=== PATIENT | female | born 1970 | race Caucasian/White ===

== ENCOUNTER 2016-12-09 11:26 | Emergency (ER) | payer MEDICARE, OTHER ==
[~2016-12-09] VITALS: Ht 162.6 cm; Wt 100.0 kg
[~2016-12-09 11:26] MED LIST: CARV3 PO; FLUT1BLS PO; LITH300C3 PO; LOSA25TA21 PO; TIOT185 IH
[2016-12-09] MEDS ORDERED: LIDOCAINE HCL BUFFERED 1% 20 ML VIAL INJ ONE (11:45)
[2016-12-09] MEDS ORDERED: HYDROCODONE/ACETAMINOPHEN 5-325 MG TABLET PO ONE (11:45)
[2016-12-09 12:31] VITALS: BP 139/77
== END 2016-12-09 12:33 | disposition home or self-care (01) ==
LOC: EMS 11:29
DX: K04.7 Periapical abscess without sinus (principal); J45.909 Unspecified asthma, uncomplicated; I10 Essential (primary) hypertension; F41.9 Anxiety disorder, unspecified; F15.90 Other stimulant use, unspecified, uncomplicated; Z88.0 Allergy status to penicillin; Z88.1 Allergy status to other antibiotic agents; Z91.013 Allergy to seafood
CPT/HCPCS: 41800; 99284; J3490; 99283

== ENCOUNTER 2016-12-16 01:32 | Inpatient (IN) | payer MEDICARE, MEDICAID ==
[~2016-12-16] VITALS: Ht 165.1 cm; Wt 102.5 kg
[~2016-12-16 01:32] MED LIST changes: -LITH300C3 PO
[2016-12-16] MEDS ORDERED: ZOLPIDEM TARTRATE 10 MG TABLET PO PRN (02:30)
[2016-12-16] MEDS ORDERED: HALOPERIDOL 5 MG TABLET PO PRN (02:30)
[2016-12-16 05:45] VITALS: BP 125/82
[2016-12-16 08:03] VITALS: BP 130/74
[2016-12-16] MEDS: LORazepam 2 MG TABLET PO PRN ×3 (09:22→18:44)
[2016-12-16] MEDS ORDERED: PredniSONE 20 MG TABLET PO ONE (09:45)
[2016-12-16] MEDS ORDERED: DiphenhydrAMINE HCL 25 MG CAPSULE PO ONE (09:45)
[2016-12-16] MEDS ORDERED: FAMOTIDINE 20 MG TABLET PO ONE (09:45)
[2016-12-16] MEDS ORDERED: ACETAMINOPHEN 325 MG TABLET PO PRN ×2 (12:30→16:15)
[2016-12-16] MEDS ORDERED: TUBERCULIN, PURIFIED PROTEIN DERIVATIVE 5 TU/0.1 ML SYG ID ONE (12:30)
[2016-12-16] MEDS ORDERED: PROMETHAZINE HCL 25 MG TABLET PO PRN (12:30)
[2016-12-16] MEDS ORDERED: GuaiFENesin/D-METHORPHAN [SUGAR-FREE] 200-20MG/10 ML SYRUP UDCUP PO PRN (12:30)
[2016-12-16] MEDS ORDERED: MAG HYDROX/AL HYDROX/SIMETH ES 30 ML SUSPENSION UDCUP PO PRN (12:30)
[2016-12-16] MEDS ORDERED: MAGNESIUM HYDROXIDE SUSPENSION 30 ML UDCUP PO PRN (12:30)
[2016-12-16] MEDS ORDERED: HydrOXYzine PAMOATE 50 MG CAPSULE PO PRN (12:30)
[2016-12-16] MEDS ORDERED: LOPERAMIDE HCL 2 MG CAPSULE PO PRN (12:30)
[2016-12-16] MEDS ORDERED: ARIPiprazole ER SUSPENSION 400 MG PRE-FILLED DUAL CHAMBER SYRINGE IM ONE (15:30)
[2016-12-16 16:07] VITALS: BP 144/81
[2016-12-16] MEDS: THIAMINE HCL 100 MG TABLET PO SCH (16:07)
[2016-12-16] MEDS: DiphenhydrAMINE HCL 25 MG CAPSULE PO SCH ×2 (16:45→20:14)
[2016-12-16] MEDS: CARVEDILOL 3.125 MG TABLET PO SCH (16:45)
[2016-12-17 01:55] VITALS: BP 139/90
[2016-12-17] MEDS: IBUPROFEN 400 MG TABLET PO PRN ×2 (02:00→16:23)
[2016-12-17 09:01] VITALS: BP 134/78
[2016-12-17] MEDS: FOLIC ACID 1 MG TABLET PO SCH (09:17)
[2016-12-17] MEDS: DiphenhydrAMINE HCL 25 MG CAPSULE PO SCH ×4 (09:17→20:36)
[2016-12-17] MEDS: FLUTICASONE/VILANTEROL 200-25 MCG/INH INHALER [14] IH SCH (09:17)
[2016-12-17] MEDS: THIAMINE HCL 100 MG TABLET PO SCH ×2 (09:17→16:18)
[2016-12-17] MEDS: CARVEDILOL 3.125 MG TABLET PO SCH ×2 (09:17→16:18)
[2016-12-17] MEDS: TIOTROPIUM BROMIDE 18 MCG/INH HANDIHALER [5] IH SCH (09:17)
[2016-12-17] MEDS: FLUoxetine HCL 10 MG CAPSULE PO SCH (09:18)
[2016-12-17] MEDS: MULTIVITAMINS WITH MINERALS, THERAPEUTIC TABLET PO SCH (09:18)
[2016-12-17] MEDS: LOSARTAN POTASSIUM 25 MG TABLET PO SCH (09:18)
[2016-12-17 09:19] VITALS: BP 134/82
[2016-12-17] MEDS: LORazepam 2 MG TABLET PO PRN ×2 (09:21→17:05)
[2016-12-17 10:21] VITALS: BP 129/76
[2016-12-17 16:05] VITALS: BP 121/66
[2016-12-17 16:25] VITALS: BP 121/68
[2016-12-18 00:02] VITALS: BP 115/69
[2016-12-18 08:31] VITALS: BP 131/73
[2016-12-18] MEDS: CARVEDILOL 3.125 MG TABLET PO SCH (09:19)
[2016-12-18] MEDS: FLUTICASONE/VILANTEROL 200-25 MCG/INH INHALER [14] IH SCH (09:19)
[2016-12-18] MEDS: LOSARTAN POTASSIUM 25 MG TABLET PO SCH (09:19)
[2016-12-18] MEDS: FOLIC ACID 1 MG TABLET PO SCH (09:19)
[2016-12-18] MEDS: FLUoxetine HCL 10 MG CAPSULE PO SCH (09:19)
[2016-12-18] MEDS: TIOTROPIUM BROMIDE 18 MCG/INH HANDIHALER [5] IH SCH (09:19)
[2016-12-18] MEDS: MULTIVITAMINS WITH MINERALS, THERAPEUTIC TABLET PO SCH (09:19)
[2016-12-18] MEDS: THIAMINE HCL 100 MG TABLET PO SCH (09:19)
[2016-12-18] MEDS: LORazepam 2 MG TABLET PO PRN (09:20)
[2016-12-18] MEDS: DiphenhydrAMINE HCL 25 MG CAPSULE PO SCH ×2 (09:32→12:40)
[2016-12-18] MEDS ORDERED: PROZ10 PO (14:13)
[2016-12-18] MEDS ORDERED: ARIP400S3 IM (14:13)
[2016-12-18] MEDS ORDERED: ALBUTEROL SULFATE HFA 90 MCG/PUFF 8 GM INHALER IH PRN (14:15)
[2016-12-18 16:13] VITALS: BP 126/64
[2016-12-18] MEDS ORDERED: CARV3 PO (16:16)
[2016-12-18] MEDS ORDERED: TIOT185 IH (16:17)
[2016-12-18] MEDS ORDERED: FLUT1BLS PO (16:17)
[2016-12-18] MEDS ORDERED: LOSA25TA21 PO (16:18)
[2017-01-13] MEDS ORDERED: ARIPiprazole ER SUSPENSION 400 MG PRE-FILLED DUAL CHAMBER SYRINGE IM SCH (09:00)
== END 2016-12-18 17:25 | disposition home or self-care (01) | DRG 885 ==
LOC: EDSTATUS 02:39 → B3A 02:53
PROVIDERS: ADMIT Psychiatry & Neurology Psychiatry; ATTEND Psychiatry & Neurology Psychiatry
DX: F31.60 Bipolar disorder, current episode mixed, unspecified (principal); K86.1 Other chronic pancreatitis; F43.10 Post-traumatic stress disorder, unspecified; F41.9 Anxiety disorder, unspecified; I10 Essential (primary) hypertension; F17.210 Nicotine dependence, cigarettes, uncomplicated; M41.9 Scoliosis, unspecified; J45.909 Unspecified asthma, uncomplicated; E66.9 Obesity, unspecified; E55.9 Vitamin D deficiency, unspecified; M19.90 Unspecified osteoarthritis, unspecified site; Z98.890 Other specified postprocedural states; Z91.19 Patient's noncompliance with other medical treatment and regimen; Z88.0 Allergy status to penicillin; Z88.1 Allergy status to other antibiotic agents; Z88.2 Allergy status to sulfonamides; Z79.899 Other long term (current) drug therapy; Z68.37 Body mass index [BMI] 37.0-37.9, adult; Z91.5 Personal history of self-harm; Z87.442 Personal history of urinary calculi; Z91.410 Personal history of adult physical and sexual abuse; Z81.8 Family history of other mental and behavioral disorders; Z82.49 Family history of ischemic heart disease and other diseases of the circulatory system; Z82.5 Family history of asthma and other chronic lower respiratory diseases
CPT/HCPCS: J0401

== ENCOUNTER 2017-06-28 20:20 | Emergency (ER) | payer MEDICARE, MEDICAID ==
[~2017-06-28 20:20] MED LIST changes: +ARIP400S3 IM; +PROZ10 PO
== END 2017-06-28 21:54 | disposition left against medical advice (07) ==
LOC: EMS 20:23
DX: S00.81XA Abrasion of other part of head, initial encounter (principal); S10.91XA Abrasion of unspecified part of neck, initial encounter; J45.909 Unspecified asthma, uncomplicated; I10 Essential (primary) hypertension; F17.210 Nicotine dependence, cigarettes, uncomplicated; F19.90 Other psychoactive substance use, unspecified, uncomplicated; Y04.2XXA Assault by strike against or bumped into by another person, initial encounter; Y93.89 Activity, other specified; Y92.89 Other specified places as the place of occurrence of the external cause; Y99.8 Other external cause status

== ENCOUNTER 2017-12-29 14:22 | Inpatient (IN) | payer MEDICARE, MEDICAID ==
[~2017-12-29] VITALS: Ht 162.6 cm; Wt 113.9 kg
[2017-12-29] MEDS ORDERED: GuaiFENesin/D-METHORPHAN [SUGAR-FREE] 200-20MG/10 ML SYRUP UDCUP PO PRN (16:30)
[2017-12-29] MEDS ORDERED: PNEUMOCOCCAL VACCINE POLYVALENT 0.5 ML VIAL [PPSV23] IM ONE (16:30)
[2017-12-29] MEDS ORDERED: TUBERCULIN, PURIFIED PROTEIN DERIVATIVE 5 TU/0.1 ML SYG ID ONE (16:30)
[2017-12-29] MEDS ORDERED: PROMETHAZINE HCL 25 MG TABLET PO PRN (16:30)
[2017-12-29] MEDS ORDERED: ZOLPIDEM TARTRATE 10 MG TABLET PO PRN (16:30)
[2017-12-29] MEDS ORDERED: HydrOXYzine PAMOATE 50 MG CAPSULE PO PRN (16:30)
[2017-12-29] MEDS ORDERED: ACETAMINOPHEN 325 MG TABLET PO PRN (16:30)
[2017-12-29] MEDS ORDERED: ARIPiprazole 5 MG TABLET PO PRN (16:30)
[2017-12-29] MEDS ORDERED: MAGNESIUM HYDROXIDE SUSPENSION 30 ML UDCUP PO PRN (16:30)
[2017-12-29] MEDS ORDERED: MAG HYDROX/AL HYDROX/SIMETH ES 30 ML SUSPENSION UDCUP PO PRN (16:30)
[2017-12-29] MEDS ORDERED: INFLUENZA VIRUS VACCINE QVS 2017-18 (3YR+)/PF 60 MCG/0.5 ML SYRINGE IM ONE (16:30)
[2017-12-29] MEDS ORDERED: LOPERAMIDE HCL 2 MG CAPSULE PO PRN (16:30)
[2017-12-29] MEDS: THIAMINE HCL 100 MG TABLET PO SCH (17:13)
[2017-12-29 17:50] VITALS: BP 117/74
[2017-12-29] MEDS ORDERED: ARIPiprazole ER SUSPENSION 400 MG PRE-FILLED DUAL CHAMBER SYRINGE IM ONE (21:00)
[2017-12-30 06:10] VITALS: BP 128/84
[2017-12-30 08:29] VITALS: BP 118/74
[2017-12-30 08:38] LABS: BASOPHILS % (AUTO) 0.5 % (0.0-2.0); EOSINOPHILS % (AUTO) 2.2 % (1.0-6.0); HEMOGLOBIN 10.2 g/dL (12.0-16.0); LYMPHOCYTES # (AUTO) 1.5 K/uL (1.0-4.8); LYMPHOCYTES % (AUTO) 21.1 % (22.0-44.0); MEAN CORPUSCULAR HEMOGLOBIN 25.7 pg (26.0-34.0); MEAN CORPUSCULAR HGB CONC 32.8 G/dL (31.0-37.0); MEAN CORPUSCULAR VOLUME 78 fL (80-100); MONOCYTES # (AUTO) 0.5 K/uL (0.1-1.0); MONOCYTES % (AUTO) 6.9 % (2.0-9.0); NEUTROPHILS % (AUTO) 69.3 % (40.0-70.0); PLATELET COUNT (AUTO) 267 K/uL (150-450); RED BLOOD CELL COUNT(AUTO) 3.96 MIL/uL (4.00-5.20); RED CELL DISTRIBUTION WIDTH 16.9 % (11.5-14.5)
[2017-12-30] MEDS: FOLIC ACID 1 MG TABLET PO SCH (08:54)
[2017-12-30] MEDS: ARIPiprazole 15 MG TABLET PO SCH (08:54)
[2017-12-30] MEDS: MULTIVITAMINS WITH MINERALS, THERAPEUTIC TABLET PO SCH (08:54)
[2017-12-30] MEDS: THIAMINE HCL 100 MG TABLET PO SCH ×2 (08:54→16:35)
[2017-12-30 09:01] LABS: HEMOGLOBIN A1C 5.5 % (4.5-6.2)
[2017-12-30 09:06] LABS: ALANINE AMINOTRANSFERASE 49 U/L (12-78); ALBUMIN 3.2 g/dL (3.4-5.0); ALKALINE PHOSPHATASE 75 U/L (46-116); ANION GAP 7 mmol/L (8-16); ASPARTATE AMINOTRANSFERASE 71 U/L (15-37); BILIRUBIN,TOTAL 0.3 mg/dL (0.1-1.0); CALCIUM, TOTAL 8.3 mg/dL (8.8-10.5); CARBON DIOXIDE 30 mmol/L (22-29); CHLORIDE 105 mmol/L (98-107); CHOLESTEROL 104 mg/dL (131-200); CREATININE 0.55 mg/dL (0.60-1.30); FREE T4 (FREE THYROXINE) 0.95 ng/dL (0.76-1.46); GLOMERULAR FILTR. RATE CALC > 60 mL/min (>60); GLUCOSE,RANDOM 89 mg/dL (70-110); HCG,QUANTITATIVE < 1 mIU/mL (0-6); HDL CHOLESTEROL 35 mg/dL (40-60); LDL CHOL (CALC.) 55 mg/dL (0-130); POTASSIUM 3.8 mmol/L (3.5-5.1); SODIUM SERUM 142 mmol/L (136-145); THYROID STIMULATING HORMONE 0.88 uIU/mL (0.36-3.74); TOTAL PROTEIN, SERUM 6.3 g/dL (6.4-8.2); TRIGLYCERIDES 68 mg/dL (15-150); UREA NITROGEN, BLOOD 11 mg/dL (7-18)
[2017-12-30] MEDS: LORazepam 2 MG TABLET PO PRN ×2 (09:25→16:35)
[2017-12-30 10:59] LABS: PLATELET MORPHOLOGY COMMENT NORMAL
[2017-12-30] MEDS ORDERED: CloNIDine HCL 0.1 MG TABLET PO PRN (14:45)
[2017-12-30] MEDS ORDERED: ACETAMINOPHEN 325 MG TABLET PO PRN (14:45)
[2017-12-30] MEDS ORDERED: IBUPROFEN 400 MG TABLET PO PRN (14:45)
[2017-12-30 16:19] VITALS: BP 124/68
[2017-12-31 01:00] VITALS: BP 146/95
[2017-12-31 08:44] VITALS: BP 140/73
[2017-12-31 08:46] LABS: HEMOGLOBIN A1C 5.4 % (4.5-6.2)
[2017-12-31] MEDS: FLUoxetine HCL 10 MG CAPSULE PO SCH (09:04)
[2017-12-31] MEDS: FOLIC ACID 1 MG TABLET PO SCH (09:04)
[2017-12-31] MEDS: TIOTROPIUM BROMIDE 18 MCG/INH HANDIHALER [5] IH SCH (09:04)
[2017-12-31] MEDS: ARIPiprazole 15 MG TABLET PO SCH (09:04)
[2017-12-31] MEDS: FLUTICASONE/VILANTEROL 200-25 MCG/INH INHALER [14] IH SCH (09:04)
[2017-12-31] MEDS: MULTIVITAMINS WITH MINERALS, THERAPEUTIC TABLET PO SCH (09:05)
[2017-12-31] MEDS: THIAMINE HCL 100 MG TABLET PO SCH ×2 (09:05→16:04)
[2017-12-31 09:19] LABS: CHOL/HDL RATIO 3.1 (3.9-5.7); THYROID STIMULATING HORMONE 0.62 uIU/mL (0.36-3.74)
[2017-12-31] MEDS: LORazepam 2 MG TABLET PO PRN ×2 (10:51→16:54)
[2017-12-31 18:14] VITALS: BP 122/80
[2018-01-01 03:15] VITALS: BP 140/76
[2018-01-01 08:37] VITALS: BP 125/83
[2018-01-01] MEDS: ARIPiprazole 15 MG TABLET PO SCH (09:12)
[2018-01-01] MEDS: THIAMINE HCL 100 MG TABLET PO SCH ×2 (09:12→16:30)
[2018-01-01] MEDS: FOLIC ACID 1 MG TABLET PO SCH (09:12)
[2018-01-01] MEDS: MULTIVITAMINS WITH MINERALS, THERAPEUTIC TABLET PO SCH (09:12)
[2018-01-01] MEDS: FLUoxetine HCL 10 MG CAPSULE PO SCH (09:12)
[2018-01-01] MEDS: TIOTROPIUM BROMIDE 18 MCG/INH HANDIHALER [5] IH SCH (09:17)
[2018-01-01] MEDS: FLUTICASONE/VILANTEROL 200-25 MCG/INH INHALER [14] IH SCH (09:17)
[2018-01-01] MEDS: LORazepam 2 MG TABLET PO PRN (14:04)
[2018-01-01 16:28] VITALS: BP 124/79
[2018-01-02 01:05] VITALS: BP 125/77
[2018-01-02] MEDS: TIOTROPIUM BROMIDE 18 MCG/INH HANDIHALER [5] IH SCH (08:29)
[2018-01-02] MEDS: THIAMINE HCL 100 MG TABLET PO SCH ×2 (08:29→16:17)
[2018-01-02] MEDS: ARIPiprazole 10 MG TABLET PO SCH (08:29)
[2018-01-02] MEDS: FOLIC ACID 1 MG TABLET PO SCH (08:30)
[2018-01-02] MEDS: FLUoxetine HCL 10 MG CAPSULE PO SCH (08:30)
[2018-01-02] MEDS: FLUTICASONE/VILANTEROL 200-25 MCG/INH INHALER [14] IH SCH (08:30)
[2018-01-02] MEDS: MULTIVITAMINS WITH MINERALS, THERAPEUTIC TABLET PO SCH (08:30)
[2018-01-02 08:32] VITALS: BP 124/86
[2018-01-02] MEDS: LORazepam 2 MG TABLET PO PRN (10:15)
[2018-01-02 16:05] VITALS: BP 124/87
[2018-01-02] MEDS: FERROUS SULFATE 325 MG EC TABLET PO SCH (16:18)
[2018-01-03 01:28] VITALS: BP 113/61
[2018-01-03] MEDS: FERROUS SULFATE 325 MG EC TABLET PO SCH ×2 (06:45→16:12)
[2018-01-03 08:03] VITALS: BP 116/76
[2018-01-03] MEDS: FLUoxetine HCL 20 MG CAPSULE PO SCH (08:39)
[2018-01-03] MEDS: ARIPiprazole 10 MG TABLET PO SCH (08:39)
[2018-01-03] MEDS: MULTIVITAMINS WITH MINERALS, THERAPEUTIC TABLET PO SCH (08:39)
[2018-01-03] MEDS: FOLIC ACID 1 MG TABLET PO SCH (08:39)
[2018-01-03] MEDS: FLUTICASONE/VILANTEROL 200-25 MCG/INH INHALER [14] IH SCH (08:40)
[2018-01-03] MEDS: THIAMINE HCL 100 MG TABLET PO SCH ×2 (08:40→16:13)
[2018-01-03] MEDS: TIOTROPIUM BROMIDE 18 MCG/INH HANDIHALER [5] IH SCH (08:40)
[2018-01-03] MEDS: LORazepam 2 MG TABLET PO PRN (14:59)
[2018-01-03 16:19] VITALS: BP 123/82
[2018-01-04 06:25] VITALS: BP 123/90
[2018-01-04] MEDS: FERROUS SULFATE 325 MG EC TABLET PO SCH (06:50)
[2018-01-04 08:31] VITALS: BP 118/76
[2018-01-04] MEDS: LORazepam 2 MG TABLET PO PRN (08:37)
[2018-01-04] MEDS: ARIPiprazole 10 MG TABLET PO SCH (08:37)
[2018-01-04] MEDS: FLUoxetine HCL 20 MG CAPSULE PO SCH (08:37)
[2018-01-04] MEDS: FOLIC ACID 1 MG TABLET PO SCH (08:37)
[2018-01-04] MEDS: MULTIVITAMINS WITH MINERALS, THERAPEUTIC TABLET PO SCH (08:37)
[2018-01-04] MEDS: THIAMINE HCL 100 MG TABLET PO SCH (08:37)
[2018-01-04] MEDS: TIOTROPIUM BROMIDE 18 MCG/INH HANDIHALER [5] IH SCH (08:38)
[2018-01-04] MEDS: FLUTICASONE/VILANTEROL 200-25 MCG/INH INHALER [14] IH SCH (08:38)
[2018-01-04] MEDS ORDERED: FERR-89 PO (10:30)
[2018-01-04] MEDS ORDERED: ARIP10TA8 PO (10:30)
[2018-01-04] MEDS ORDERED: FLUO-191 PO (10:30)
[2018-01-04 16:22] VITALS: BP 121/86
[2018-01-26] MEDS ORDERED: ARIPiprazole ER SUSPENSION 400 MG PRE-FILLED DUAL CHAMBER SYRINGE IM SCH (09:00)
== END 2018-01-04 16:05 | disposition home or self-care (01) | DRG 885 ==
LOC: B2S 16:42
PROVIDERS: ADMIT Psychiatry & Neurology Psychiatry; ATTEND Psychiatry & Neurology Psychiatry
DX: F31.9 Bipolar disorder, unspecified (principal); E83.51 Hypocalcemia; M41.9 Scoliosis, unspecified; R45.850 Homicidal ideations; Z91.19 Patient's noncompliance with other medical treatment and regimen; D64.9 Anemia, unspecified; F10.10 Alcohol abuse, uncomplicated; F41.0 Panic disorder [episodic paroxysmal anxiety]; F43.10 Post-traumatic stress disorder, unspecified; I10 Essential (primary) hypertension; J45.909 Unspecified asthma, uncomplicated; R74.0 Nonspecific elevation of levels of transaminase and lactic acid dehydrogenase [LDH]; M19.90 Unspecified osteoarthritis, unspecified site; Z82.49 Family history of ischemic heart disease and other diseases of the circulatory system; Z82.5 Family history of asthma and other chronic lower respiratory diseases; Z87.442 Personal history of urinary calculi; Z87.891 Personal history of nicotine dependence; Z91.410 Personal history of adult physical and sexual abuse; Z90.49 Acquired absence of other specified parts of digestive tract; Z28.21 Immunization not carried out because of patient refusal; Z88.2 Allergy status to sulfonamides; Z88.8 Allergy status to other drugs, medicaments and biological substances; Z88.1 Allergy status to other antibiotic agents; Z88.0 Allergy status to penicillin; Z91.013 Allergy to seafood
CPT/HCPCS: 80074; 82652; 83036; 84439; 84443; 86592; 87081; J0401

== ENCOUNTER 2018-04-13 11:30 | Emergency (ER) | payer MEDICARE, OTHER ==
[~2018-04-13] VITALS: Ht 175.3 cm; Wt 106.8 kg
[~2018-04-13 11:30] MED LIST changes: +ARIP10TA8 PO; -CARV3 PO; +FERR-89 PO; +FLUO-191 PO; -LOSA25TA21 PO; -PROZ10 PO
[2018-04-13] MEDS ORDERED: ONDA4 PO (12:06)
[2018-04-13] MEDS ORDERED: FURO20 PO (12:06)
[2018-04-13] MEDS ORDERED: DIPH25 PO (12:06)
[2018-04-13] MEDS ORDERED: METO50 PO (12:06)
[2018-04-13] MEDS ORDERED: THIA100 PO (12:06)
[2018-04-13] MEDS ORDERED: ZOLP10TA7 PO (12:06)
[2018-04-13] MEDS ORDERED: SODIUM CHLORIDE 0.9% 1,000 ML IV ONE (13:00)
[2018-04-13] MEDS ORDERED: HYDROmorphone 2 MG/ML SYRINGE IVP ONE (13:00)
[2018-04-13] MEDS ORDERED: ONDANSETRON HCL 4 MG/2 ML VIAL IVP ONE (13:00)
[2018-04-13] MEDS ORDERED: ONDANSETRON HCL 4 MG TABLET PO ONE (14:00)
[2018-04-13] MEDS ORDERED: OxyCODONE HCL/ACETAMINOPHEN 5-325 MG TABLET PO ONE (14:00)
[2018-04-13 14:30] LABS: BASOPHILS % (AUTO) 1.1 % (0.0-2.0); EOSINOPHILS % (AUTO) 4.4 % (1.0-6.0); HEMATOCRIT 37.6 % (36-46); HEMOGLOBIN 12.5 g/dL (12.0-16.0); LYMPHOCYTES # (AUTO) 1.9 K/uL (1.0-4.8); LYMPHOCYTES % (AUTO) 24.2 % (22.0-44.0); MEAN CORPUSCULAR HEMOGLOBIN 25.5 pg (26.0-34.0); MEAN CORPUSCULAR HGB CONC 33.3 G/dL (31.0-37.0); MEAN CORPUSCULAR VOLUME 77 fL (80-100); MONOCYTES # (AUTO) 0.7 K/uL (0.1-1.0); MONOCYTES % (AUTO) 8.8 % (2.0-9.0); NEUTROPHILS # (AUTO) 4.9 K/uL (1.8-7.7); NEUTROPHILS % (AUTO) 61.5 % (40.0-70.0); PLATELET COUNT (AUTO) 337 K/uL (150-450); RED BLOOD CELL COUNT(AUTO) 4.91 MIL/uL (4.00-5.20)
[2018-04-13 14:40] LABS: ANION GAP 6 mmol/L (8-16); CALCIUM, TOTAL 8.8 mg/dL (8.8-10.5); CARBON DIOXIDE 31 mmol/L (22-29); CHLORIDE 101 mmol/L (98-107); CREATININE 0.75 mg/dL (0.60-1.30); GLOMERULAR FILTR. RATE CALC > 60 mL/min (>60); GLUCOSE,RANDOM 100 mg/dL (70-110); POTASSIUM 3.4 mmol/L (3.5-5.1); SODIUM SERUM 138 mmol/L (136-145); UREA NITROGEN, BLOOD 7 mg/dL (7-18)
[2018-04-13 14:46] LABS: ALANINE AMINOTRANSFERASE 51 U/L (12-78); ALBUMIN 3.6 g/dL (3.4-5.0); ALKALINE PHOSPHATASE 104 U/L (46-116); ASPARTATE AMINOTRANSFERASE 36 U/L (15-37); BILIRUBIN,TOTAL 0.4 mg/dL (0.1-1.0); LIPASE 141 U/L (73-393); TOTAL PROTEIN, SERUM 7.7 g/dL (6.4-8.2)
[2018-04-13 15:59] VITALS: BP 144/88
== END 2018-04-13 17:15 | disposition home or self-care (01) ==
LOC: EMS 11:32
DX: K64.5 Perianal venous thrombosis (principal); E86.0 Dehydration; F32.9 Major depressive disorder, single episode, unspecified; F43.10 Post-traumatic stress disorder, unspecified; I10 Essential (primary) hypertension; J45.909 Unspecified asthma, uncomplicated; Z87.442 Personal history of urinary calculi; Z88.0 Allergy status to penicillin; Z88.2 Allergy status to sulfonamides; Z90.49 Acquired absence of other specified parts of digestive tract; Z79.899 Other long term (current) drug therapy; Z91.013 Allergy to seafood
CPT/HCPCS: 36415; 80053; 83690; 85025; 96360; 99284; Q0162

== ENCOUNTER 2018-06-12 21:06 | Emergency (ER) | payer MEDICARE, OTHER ==
[~2018-06-12] VITALS: Ht 165.1 cm; Wt 114.0 kg
[~2018-06-12 21:06] MED LIST changes: +AMLO-511 PO; -ARIP400S3 IM; -FERR-89 PO; +FURO20 PO; +METO50 PO; +THIA100T67 PO; -TIOT185 IH
[2018-06-12] MEDS ORDERED: HYDR-3422 PO (21:28)
[2018-06-12] MEDS ORDERED: PRED20 PO (21:28)
[2018-06-12] MEDS ORDERED: ALBU8HFA IH (21:28)
[2018-06-12] MEDS ORDERED: METF850T2 PO (21:28)
[2018-06-12] MEDS ORDERED: LOSA25TA21 PO (21:28)
[2018-06-12 21:33] LABS: GLUCOSE,POINT OF CARE 118 MG/DL (70-110)
[2018-06-12 22:10] LABS: BASOPHILS % (AUTO) 0.7 % (0.0-2.0); EOSINOPHILS % (AUTO) 3.8 % (1.0-6.0); HEMATOCRIT 39.2 % (36-46); HEMOGLOBIN 13.4 g/dL (12.0-16.0); LYMPHOCYTES # (AUTO) 2.8 K/uL (1.0-4.8); LYMPHOCYTES % (AUTO) 26.5 % (22.0-44.0); MEAN CORPUSCULAR HGB CONC 34.2 G/dL (31.0-37.0); MEAN CORPUSCULAR VOLUME 79 fL (80-100); MONOCYTES # (AUTO) 0.7 K/uL (0.1-1.0); MONOCYTES % (AUTO) 6.6 % (2.0-9.0); NEUTROPHILS # (AUTO) 6.5 K/uL (1.8-7.7); NEUTROPHILS % (AUTO) 62.4 % (40.0-70.0); PLATELET COUNT (AUTO) 307 K/uL (150-450); RED BLOOD CELL COUNT(AUTO) 4.96 MIL/uL (4.00-5.20); RED CELL DISTRIBUTION WIDTH 18.9 % (11.5-14.5)
[2018-06-12 22:32] LABS: ALANINE AMINOTRANSFERASE 32 U/L (12-78); ALKALINE PHOSPHATASE 73 U/L (46-116); ANION GAP 13 mmol/L (8-16); ASPARTATE AMINOTRANSFERASE 33 U/L (15-37); CALCIUM, TOTAL 9.6 mg/dL (8.8-10.5); CARBON DIOXIDE 25 mmol/L (22-29); CHLORIDE 100 mmol/L (98-107); CREATININE 1.03 mg/dL (0.60-1.30); GLOMERULAR FILTR. RATE CALC 57 mL/min (>60); GLUCOSE,RANDOM 113 mg/dL (70-110); LIPASE 89 U/L (73-393); SODIUM SERUM 138 mmol/L (136-145); TOTAL PROTEIN, SERUM 7.7 g/dL (6.4-8.2); UREA NITROGEN, BLOOD 11 mg/dL (7-18)
[2018-06-12 23:13] VITALS: BP 137/68
[2018-06-12] MEDS ORDERED: POTASSIUM CHLORIDE 10% 40 MEQ/30 ML LIQUID UDCUP PO ONE (23:15)
== END 2018-06-12 23:32 | disposition home or self-care (01) ==
LOC: EMS 21:08
DX: E87.6 Hypokalemia (principal); R07.89 Other chest pain; F41.9 Anxiety disorder, unspecified; F31.9 Bipolar disorder, unspecified; I10 Essential (primary) hypertension; F15.90 Other stimulant use, unspecified, uncomplicated; Z88.0 Allergy status to penicillin; Z88.1 Allergy status to other antibiotic agents; Z88.2 Allergy status to sulfonamides; Z88.8 Allergy status to other drugs, medicaments and biological substances
CPT/HCPCS: 36415; 71045; 80053; 82962; 83690; 84484; 84703; 85025; 93005; 99285; G0480

== ENCOUNTER 2018-06-15 00:28 | Inpatient (IN) | payer MEDICARE, MEDICAID ==
[~2018-06-15] VITALS: Ht 165.1 cm; Wt 98.6 kg
[~2018-06-15 00:28] MED LIST changes: +ALBU8HFA IH; +HYDR-3422 PO; +LOSA25TA21 PO; +METF850T2 PO; +PRED20 PO
[2018-06-15] MEDS ORDERED: DiphenhydrAMINE HCL 50 MG/ML VIAL IM ONE (00:45)
[2018-06-15] MEDS ORDERED: LORazepam 2 MG/ML VIAL IM ONE (00:45)
[2018-06-15] MEDS ORDERED: HALOPERIDOL LACTATE 5 MG/ML VIAL IM ONE (00:45)
[2018-06-15 01:14] LABS: GLUCOSE,POINT OF CARE 109 MG/DL (70-110)
[2018-06-15] MEDS ORDERED: HALOPERIDOL 5 MG TABLET PO PRN (02:30)
[2018-06-15] MEDS ORDERED: ZOLPIDEM TARTRATE 10 MG TABLET PO PRN (02:30)
[2018-06-15] MEDS ORDERED: LORazepam 2 MG TABLET PO PRN (02:30)
[2018-06-15 02:36] LABS: BASOPHILS % (AUTO) 1.1 % (0.0-2.0); HEMATOCRIT 38.6 % (36-46); HEMOGLOBIN 13.3 g/dL (12.0-16.0); LYMPHOCYTES # (AUTO) 2.2 K/uL (1.0-4.8); MEAN CORPUSCULAR HEMOGLOBIN 27.5 pg (26.0-34.0); MEAN CORPUSCULAR HGB CONC 34.6 G/dL (31.0-37.0); MEAN CORPUSCULAR VOLUME 80 fL (80-100); MONOCYTES # (AUTO) 0.7 K/uL (0.1-1.0); NEUTROPHILS # (AUTO) 4.8 K/uL (1.8-7.7); NEUTROPHILS % (AUTO) 58.9 % (40.0-70.0); PLATELET COUNT (AUTO) 311 K/uL (150-450); RED BLOOD CELL COUNT(AUTO) 4.84 MIL/uL (4.00-5.20)
[2018-06-15 02:48] LABS: ANION GAP 12 mmol/L (8-16); CALCIUM, TOTAL 9.2 mg/dL (8.8-10.5); CARBON DIOXIDE 25 mmol/L (22-29); CHLORIDE 103 mmol/L (98-107); CREATININE 1.18 mg/dL (0.60-1.30); GLOMERULAR FILTR. RATE CALC 49 mL/min (>60); GLUCOSE,RANDOM 88 mg/dL (70-110); POTASSIUM 3.4 mmol/L (3.5-5.1); SODIUM SERUM 140 mmol/L (136-145); UREA NITROGEN, BLOOD 16 mg/dL (7-18)
[2018-06-15] MEDS ORDERED: POTASSIUM CHLORIDE 20 MEQ ER TABLET PO ONE (03:00)
[2018-06-15 03:02] LABS: ALANINE AMINOTRANSFERASE 30 U/L (12-78); ALBUMIN 4.2 g/dL (3.4-5.0); ALKALINE PHOSPHATASE 61 U/L (46-116); ASPARTATE AMINOTRANSFERASE 36 U/L (15-37); BILIRUBIN,TOTAL 1.3 mg/dL (0.1-1.0); THYROID STIMULATING HORMONE 2.15 uIU/mL (0.36-3.74); TOTAL PROTEIN, SERUM 7.6 g/dL (6.4-8.2)
[2018-06-15 06:10] VITALS: BP 141/89
[2018-06-15] MEDS ORDERED: ACETAMINOPHEN 325 MG TABLET PO PRN (06:15)
[2018-06-15] MEDS ORDERED: CloNIDine HCL 0.1 MG TABLET PO PRN (06:15)
[2018-06-15] MEDS ORDERED: MAGNESIUM HYDROXIDE SUSPENSION 30 ML UDCUP PO PRN (06:15)
[2018-06-15] MEDS ORDERED: ONDANSETRON HCL 4 MG TABLET PO PRN (06:15)
[2018-06-15] MEDS ORDERED: GuaiFENesin/D-METHORPHAN [SUGAR-FREE] 200-20MG/10 ML SYRUP UDCUP PO PRN (06:15)
[2018-06-15] MEDS ORDERED: MAG HYDROX/AL HYDROX/SIMETH ES 30 ML SUSPENSION UDCUP PO PRN (06:15)
[2018-06-15] MEDS ORDERED: DOCUSATE SODIUM 100 MG CAPSULE PO PRN (06:15)
[2018-06-15] MEDS ORDERED: LOPERAMIDE HCL 2 MG CAPSULE PO PRN (06:15)
[2018-06-15] MEDS ORDERED: PETROLATUM,WHITE 71 GM JELLY TP PRN (06:15)
[2018-06-15] MEDS ORDERED: ALBUTEROL SULFATE HFA 90 MCG/PUFF 8 GM INHALER IH PRN (06:15)
[2018-06-15] MEDS ORDERED: QUEtiapine FUMARATE 200 MG TABLET PO PRN (09:00)
[2018-06-15] MEDS: FLUTICASONE/VILANTEROL 200-25 MCG/INH INHALER [14] IH SCH (09:06)
[2018-06-15] MEDS: FUROSEMIDE 20 MG TABLET PO SCH (09:07)
[2018-06-15] MEDS: ARIPiprazole 15 MG TABLET PO SCH (09:07)
[2018-06-15] MEDS: FLUoxetine HCL 20 MG CAPSULE PO SCH (09:11)
[2018-06-15] MEDS ORDERED: ARIPiprazole 10 MG TABLET PO SCH (09:15)
[2018-06-15] MEDS ORDERED: PNEUMOCOCCAL VACCINE POLYVALENT 0.5 ML VIAL [PPSV23] IM ONE (10:45)
[2018-06-15] MEDS: AmLODIPine BESYLATE 2.5 MG TABLET PO SCH (12:20)
[2018-06-15] MEDS: LOSARTAN POTASSIUM 25 MG TABLET PO SCH (12:21)
[2018-06-15] MEDS: NYSTATIN 15 GM POWDER BOTTLE TP SCH (12:21)
[2018-06-15 16:28] VITALS: BP 126/78
[2018-06-15] MEDS: IBUPROFEN 400 MG TABLET PO PRN (21:34)
[2018-06-16 06:31] VITALS: BP 116/74
[2018-06-16] MEDS: IBUPROFEN 400 MG TABLET PO PRN ×2 (06:45→17:40)
[2018-06-16 08:28] LABS: HEMOGLOBIN A1C 5.1 % (4.5-6.2)
[2018-06-16 08:45] VITALS: BP 104/55
[2018-06-16] MEDS ORDERED: FLUoxetine HCL 20 MG CAPSULE PO SCH (09:00)
[2018-06-16] MEDS: AmLODIPine BESYLATE 2.5 MG TABLET PO SCH (09:00)
[2018-06-16] MEDS: FUROSEMIDE 20 MG TABLET PO SCH (09:00)
[2018-06-16 09:04] LABS: CHOL/HDL RATIO 5.5 (3.9-5.7); CHOLESTEROL 159 mg/dL (131-200); HCG,QUANTITATIVE < 1 mIU/mL (0-6); HDL CHOLESTEROL 29 mg/dL (40-60); LDL CHOL (CALC.) 101 mg/dL (0-130); POTASSIUM 4.1 mmol/L (3.5-5.1); THYROID STIMULATING HORMONE 1.13 uIU/mL (0.36-3.74); TRIGLYCERIDES 146 mg/dL (15-150)
[2018-06-16 09:45] VITALS: BP 98/58
[2018-06-16] MEDS: FLUoxetine HCL 20 MG CAPSULE PO SCH (10:03)
[2018-06-16] MEDS: ARIPiprazole 15 MG TABLET PO SCH (10:03)
[2018-06-16] MEDS: LOSARTAN POTASSIUM 25 MG TABLET PO SCH (10:04)
[2018-06-16] MEDS: FLUTICASONE/VILANTEROL 200-25 MCG/INH INHALER [14] IH SCH (10:05)
[2018-06-16] MEDS: NYSTATIN 15 GM POWDER BOTTLE TP SCH ×2 (10:05→16:20)
[2018-06-16] MEDS: MUPIROCIN CALCIUM 2% 22 GM OINTMENT NASAL SCH (16:20)
[2018-06-16 16:33] VITALS: BP 109/60
[2018-06-17 08:30] VITALS: BP 109/65
[2018-06-17] MEDS: LOSARTAN POTASSIUM 25 MG TABLET PO SCH (08:55)
[2018-06-17] MEDS: FUROSEMIDE 20 MG TABLET PO SCH (08:55)
[2018-06-17] MEDS: FLUoxetine HCL 20 MG CAPSULE PO SCH (08:55)
[2018-06-17] MEDS: ARIPiprazole 15 MG TABLET PO SCH (08:56)
[2018-06-17] MEDS: AmLODIPine BESYLATE 2.5 MG TABLET PO SCH (08:56)
[2018-06-17] MEDS: MUPIROCIN CALCIUM 2% 22 GM OINTMENT NASAL SCH ×2 (08:56→17:06)
[2018-06-17] MEDS: NYSTATIN 15 GM POWDER BOTTLE TP SCH ×3 (08:57→17:06)
[2018-06-17] MEDS: FLUTICASONE/VILANTEROL 200-25 MCG/INH INHALER [14] IH SCH (08:57)
[2018-06-17] MEDS: IBUPROFEN 400 MG TABLET PO PRN (12:17)
[2018-06-17 16:08] VITALS: BP 118/70
[2018-06-18 00:12] VITALS: BP 124/89
[2018-06-18 08:13] VITALS: BP 120/80
[2018-06-18] MEDS: FLUoxetine HCL 20 MG CAPSULE PO SCH (08:14)
[2018-06-18] MEDS: FLUTICASONE/VILANTEROL 200-25 MCG/INH INHALER [14] IH SCH (08:14)
[2018-06-18] MEDS: ARIPiprazole 15 MG TABLET PO SCH (08:14)
[2018-06-18] MEDS: FUROSEMIDE 20 MG TABLET PO SCH (08:15)
[2018-06-18] MEDS: AmLODIPine BESYLATE 2.5 MG TABLET PO SCH (08:15)
[2018-06-18] MEDS: NYSTATIN 15 GM POWDER BOTTLE TP SCH (08:15)
[2018-06-18] MEDS: MUPIROCIN CALCIUM 2% 22 GM OINTMENT NASAL SCH (08:15)
[2018-06-18] MEDS: LOSARTAN POTASSIUM 25 MG TABLET PO SCH (08:15)
[2018-06-18] MEDS: IBUPROFEN 400 MG TABLET PO PRN (08:54)
== END 2018-06-18 13:44 | disposition home or self-care (01) | DRG 885 ==
LOC: EMS 00:28 → B3A 02:00
PROVIDERS: ADMIT Psychiatry & Neurology Psychiatry; ATTEND Psychiatry & Neurology Psychiatry
DX: F31.13 Bipolar disorder, current episode manic without psychotic features, severe (principal); C79.9 Secondary malignant neoplasm of unspecified site; F23 Brief psychotic disorder; R17 Unspecified jaundice; E66.3 Overweight; E87.6 Hypokalemia; F10.10 Alcohol abuse, uncomplicated; F15.90 Other stimulant use, unspecified, uncomplicated; F43.10 Post-traumatic stress disorder, unspecified; I11.0 Hypertensive heart disease with heart failure; I50.9 Heart failure, unspecified; J44.9 Chronic obstructive pulmonary disease, unspecified; M19.90 Unspecified osteoarthritis, unspecified site; M41.9 Scoliosis, unspecified; Z78.1 Physical restraint status; Z79.899 Other long term (current) drug therapy; Z85.828 Personal history of other malignant neoplasm of skin; Z87.442 Personal history of urinary calculi; F60.3 Borderline personality disorder; Z88.2 Allergy status to sulfonamides; Z88.8 Allergy status to other drugs, medicaments and biological substances; Z88.1 Allergy status to other antibiotic agents; Z88.0 Allergy status to penicillin; Z91.013 Allergy to seafood; Z22.322 Carrier or suspected carrier of Methicillin resistant Staphylococcus aureus; Z28.21 Immunization not carried out because of patient refusal
CPT/HCPCS: 83036; 84132; 84443; 87081; 93005; 96372; 99291; G0480; J1200; J1630; J2060